=== PATIENT | male | born 1980 | race Caucasian/White ===

== ENCOUNTER 2017-01-25 20:08 | Emergency (ER) | payer OTHER ==
[2017-01-25 20:17] VITALS: TEMP 97.8
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
[2017-01-25 21:24] VITALS: BP 125/87; PULSE 95; RESP 18
== END 2017-01-25 21:33 | disposition home or self-care (01) ==
LOC: EC 20:08
DX: S09.90XA Unspecified injury of head, initial encounter (principal); S00.93XA Contusion of unspecified part of head, initial encounter; F17.200 Nicotine dependence, unspecified, uncomplicated; Y35.813A Legal intervention involving manhandling, suspect injured, initial encounter; Y35.811A Legal intervention involving manhandling, law enforcement official injured, initial encounter
CPT/HCPCS: 99283

== ENCOUNTER 2020-03-15 23:53 | Emergency (ER) | payer OTHER ==
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
[2020-03-16 00:52] VITALS: BP 105/69; PULSE 109; RESP 16
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
== END 2020-03-16 01:56 | disposition home or self-care (01) ==
LOC: EC 23:53
DX: R06.00 Dyspnea, unspecified (principal); F17.200 Nicotine dependence, unspecified, uncomplicated; Y04.0XXA Assault by unarmed brawl or fight, initial encounter; Y92.69 Other specified industrial and construction area as the place of occurrence of the external cause; Y99.0 Civilian activity done for income or pay
CPT/HCPCS: 71046; 93005; 99285